=== PATIENT | male | born 1960 | race African-American/Black ===

== ENCOUNTER 2017-03-23 02:00 | Inpatient (IN) | payer OTHER ==
[~2017-03-23] VITALS: Ht 167.6 cm; Wt 86.2 kg
--- NOTE | ~2017-03-23 | PN ---
Unit #: [id number] #: [id number] Patient: HARMEET BROOKS [id number] [facility] [address] [place] [address] [id number] I MR#: [id number] NAME: HARMEET BROOKS. ROOM: P110 Age: 56 Sex: M Admission Date: 03/23/2017 : 1960 Attending Physician: Chi Workman M.D. Admitting Physician: Chi Workman M.D. Primary Care Physician: Ravinder Roldan PROGRESS NOTES DATE 03/28/2017 DISCUSSION Mr. Brooks continues to have some depressed mood with a downcast affect. He is alert and fully oriented today. Memory and concentration are fair. Thought processes are logical with no psychosis. He does continue to endorse suicidal thinking. ASSESSMENT Major depression. PLAN Continue current treatment plan and work toward discharge later in the week. Dictated by... Ravinder Catherine/aggie TD: 03/28/2017 23:03 JOB #: [id number] [facility] PROGRESS NOTES Page 1 of 1 X Chi Workman MD X PROGRESS NOTE
--- NOTE | ~2017-03-23 | PN ---
Unit #: [id number] #: [id number] Patient: HARMEET BROOKS [id number] [facility] [address] [place] [address] [id number] I MR#: [id number] NAME: HARMEET BROOKS. ROOM: P110 Age: 56 Sex: M Admission Date: 03/23/2017 : 1960 Attending Physician: Chi Workman M.D. Admitting Physician: Chi Workman M.D. Primary Care Physician: Ravinder Roldan PROGRESS NOTES DATE 03/27/2017 DISCUSSION Harmeet continues to participate appropriately in groups and activities. His mood is depressed with a decreased range of affect although a little brighter than yesterday. He is alert and fully oriented with no psychosis. He continues to ruminate on suicidality. He is also concerned about his outpatient placement. ASSESSMENT Major depression. PLAN Continue current treatment plan and I encouraged the patient to work with his director of social media marketing on clarifying placement issues. Dictated by... Chi Workman M.D. /camila TD: 03/28/2017 15:11 JOB #: [id number] [facility] PROGRESS NOTES Page 1 of 1 X Chi Workman MD X PROGRESS NOTE
--- NOTE | ~2017-03-23 | DS ---
Unit #: [id number] #: [id number] Patient: HARMEET BROOKS [id number] [facility] [address] [place] [address] [id number] I MR#: [id number] NAME: HARMEET BROOKS. ROOM: [facility] Age: 56 Sex: M Admission Date: 03/23/2017 : 1960 Discharge Date: 04/02/2017 Attending Physician: Chi Workman M.D. Primary Care Physician: Sumi Velazquez M.D. DISCHARGE SUMMARY Covering for Dr. Chi Workman REASON FOR ADMISSION Mr. Brooks is a 56-year-old male, who was admitted related to depression and suicidal ideation. DIAGNOSTIC STUDIES Laboratory data, please see hospital chart. HOSPITAL COURSE Mr. Brooks was admitted and placed on suicidal precautions, and previous medications. Mr. Brooks was generally quiet, compliant during this hospitalization and upon the day of discharge denied any homicidal, suicidal ideations, and verbalized no plan or intent. He contracted for safety. His biggest concern, during this hospitalization, was postdischarge disposition. Mr. Brooks eagerly pushed for placement in a thirty day substance abuse residential center. At this time, he is joelle for safety and after interview with staff he was able to discharge at his request. DISCHARGE DIAGNOSES Egan I Major depressive disorder, recurrent, severe without psychotic symptoms. Egan II Deferred. Egan III None acute. Egan IV Egan V FOLLOWUP CARE Follow up with community mental health and substance abuse treatment resources. DISCHARGE MEDICATIONS 1. Zoloft 50 mg daily 2. Trazodone 50 mg q.h.s. CONDITION AT DISCHARGE Fair. PROGNOSIS Fair. Unit #: [id number] #: [id number] Patient: HARMEET BROOKS DIET AND ACTIVITY Ad luis. Dictated by... Lavinia Simmons APRN for Ravinder Catherine/kb TD: 04/06/2017 06:31 JOB #: [id number] DISCHARGE SUMMARY Page 1 of 1 X LAVINIA SIMMONS DISCHARGE SUMMARY
--- NOTE | ~2017-03-23 | PN ---
Unit #: [id number] #: [id number] Patient: HARMEET BROOKS [id number] [facility] [address] [place] [address] [id number] MR#: [id number] NAME: HARMEET BROOKS. ROOM: P110 Age: 56 Sex: M Admission Date: 03/23/2017 : 1960 Attending Physician: Chi Workman M.D. Admitting Physician: Chi Workman M.D. Primary Care Physician: Ravinder Roldan PROGRESS NOTES DATE 03/26/2017 DISCUSSION Mr. Brooks says that he is beginning to feel better. He is compliant with medications and has no adverse side effects. He is alert and fully oriented with a brighter affect and no active psychosis. He does continue to ruminate on suicidal ideation and outside concerns. ASSESSMENT Major depression. PLAN Continue current treatment plan. Dictated by... Ravinder Catherine/camila TD: 03/28/2017 17:01 JOB #: [id number] [facility] PROGRESS NOTES Page 1 of 1 X Chi Workman MD X PROGRESS NOTE
--- NOTE | ~2017-03-23 | PN ---
Unit #: [id number] #: [id number] Patient: HARMEET BROOKS [id number] [facility] [address] [place] [address] [id number] I MR#: [id number] NAME: HARMEET BROOKS. ROOM: [facility] Age: 56 Sex: M Admission Date: 03/23/2017 : 1960 Attending Physician: Chi Workman M.D. Admitting Physician: Chi Workman M.D. Primary Care Physician: Ravinder Roldan PROGRESS NOTES DATE 03/31/2017 DISCUSSION This patient was seen and assessed on March 31, 2017. Upon discussion upon today's assessment the patient was found ambulating in the hallway. He smiled and stated that he was thankful that he finally had a plan in action as far as his disposition post discharge. At this time, he says that he will be following up with [facility] as well as with a the [facility] until the time he attends his pending court date and will then be accepted to the 28 day substance abuse facility that [place]. At this time, he denies suicidal ideations and homicidal ideation and verbalized no plan or intent. He denies auditory or visual hallucinations and no overt symptoms of psychosis was noted. We will continue to monitor the patient q 15 minutes for safety. Dictated by... KEI Ray/aggie TD: 04/03/2017 04:48 JOB #: [id number] [facility] PROGRESS NOTES Page 1 of 1 X ANDRES SIMMONS PROGRESS NOTE
--- NOTE | ~2017-03-23 | PN ---
Unit #: [id number] #: [id number] Patient: HARMEET BROOKS [id number] [facility] [address] [place] [address] [id number] MR#: [id number] NAME: HARMEET BROOKS. ROOM: [facility] Age: 56 Sex: M Admission Date: 03/23/2017 : 1960 Attending Physician: Chi Workman M.D. Admitting Physician: Chi Workman M.D. Primary Care Physician: Ravinder Roldan PROGRESS NOTES DATE 04/01/2017 DISCUSSION Upon today's assessment, this patient was found in the dayroom appearing in no apparent distress. He smiled at this provider and stated that he was happy and satisfied with his post discharge placement and that he was looking forward to discharge tomorrow. He currently reports no SI/HI and verbalizes no plan or intent. He denies auditory or visual hallucinations and no overt symptoms of psychosis was noted. He reports adequate appetite and adequate sleep. PLAN Dc tomorrow and follow up with [facility]. Dictated by... KEI Ray/camila TD: 04/03/2017 21:05 JOB #: [id number] [facility] PROGRESS NOTES Page 1 of 1 X ANDRES SIMMONS PROGRESS NOTE
--- NOTE | ~2017-03-23 | PN ---
Unit #: [id number] #: [id number] Patient: HARMEET BROOKS [id number] [facility] [address] [place] [address] [id number] I MR#: [id number] NAME: HARMEET BROOKS. ROOM: P261 Age: 56 Sex: M Admission Date: 03/23/2017 : 1960 Attending Physician: Chi Workman M.D. Admitting Physician: Chi Workman M.D. Primary Care Physician: Ravinder Roldan PROGRESS NOTES DATE 03/29/2017 DISCUSSION This patient was seen and assessed on 03/29/2017. Upon today's assessment Mr. Brooks reports that he is concerned regarding his discharge and is worried that he may be homeless post discharge. He reports that his plan is to followup with a residential center in [place] and/or [place]. Upon today's assessment he denies suicidal or homicidal ideations and verbalized no plan or intent. He also denies auditory or visual hallucinations and no overt symptoms of psychosis was noted. He reports that he is sleeping well and that his appetite is adequate. PLAN Continue to work with Mr. Brooks's therapist/clinical social worker to facilitate placement post discharge. Dictated by... KEI Ray/aggie TD: 04/02/2017 05:16 JOB #: [id number] [facility] PROGRESS NOTES Page 1 of 1 X ANDRES SIMMONS PROGRESS NOTE
--- NOTE | ~2017-03-23 | PN ---
Unit #: [id number] #: [id number] Patient: HARMEET BROOKS [id number] [facility] [address] [place] [address] [id number] I MR#: [id number] NAME: HARMEET BROOKS. ROOM: [facility] Age: 56 Sex: M Admission Date: 03/23/2017 : 1960 Attending Physician: Chi Workman M.D. Admitting Physician: Chi Workman M.D. Primary Care Physician: Ravinder Roldan PROGRESS NOTES DATE 03/24/2017 DISCUSSION Mr. Brooks is isolative in his room today and is depressed with a downcast affect. He is alert and fully oriented. His memory and concentration are intact. His thought processes are logical with no active psychosis. ASSESSMENT 1. Major depression. 2. Cocaine abuse. PLAN Continue current treatment plan. Dictated by... Chi Workman M.D. [facility]/camila TD: 03/28/2017 22:22 JOB #: [id number] [facility] PROGRESS NOTES Page 1 of 1 X Chi Workman MD X PROGRESS NOTE
--- NOTE | ~2017-03-23 | HP ---
Unit #: [id number] #: [id number] Patient: HARMEET BROOKS [id number] [facility] [address] [place] [address] [id number] I MR#: [id number] NAME: HARMEET BROOKS. ROOM: P110 Age: 56 Sex: M Admission Date: 03/23/2017 : 1960 Attending Physician: Chi Workman M.D. Admitting Physician: Chi Workman M.D. Primary Care Physician: Sumi Velazquez M.D. HISTORY AND PHYSICAL HISTORY OF PRESENT ILLNESS Harmeet is a 56 year old admitted to [address] [place] [address] because of his continued abuse of alcohol. He has had other admissions to this facility. PAST MEDICAL HISTORY 1. Long history of alcohol abuse. 2. COPD. 3. Hyperlipidemia. 4. High blood pressure. 5. Diabetes mellitus. PAST SURGICAL HISTORY Nothing reported. ALLERGIES No known drug allergies. SOCIAL HISTORY He smokes one pack per day. Drinks alcohol frequently. He has a history of illicit substance abuse but denies anything currently. FAMILY HISTORY Medically noncontributory. REVIEW OF SYSTEMS CONSTITUTIONAL: No fever or chills. HEENT: Denies any sore throat, ear pain or runny nose. CARDIOVASCULAR: Denies chest pain, irregular heart rhythm or palpitations. CHEST: Denies shortness of breath or cough. No hemoptysis. GASTROINTESTINAL: Denies nausea, vomiting, diarrhea or chronic constipation. ENDOCRINE: Denies history of increased thirst or urination. No recent significant weight loss or gain. GENITOURINARY: Denies dysuria, frequency, or hematuria. SKIN: Denies any rashes. HEMATOLOGIC: Denies history of increased bleeding or bruising. MUSCULOSKELETAL: Denies any hot, swollen joints. No generalized muscle pain. NEUROLOGIC: Denies problems with vision or speech. No frequent, severe headaches. No numbness, tingling or weakness in any extremities. Denies loss of bladder or bowel control. Unit #: [id number] #: [id number] Patient: HARMEET BROOKS CURRENT MEDICATIONS 1. Detox protocol 2. Protonix 40 mg q day 3. Zoloft 50 mg q day 4. Symbicort 2 puffs b.i.d. 5. Bisacodyl enteric coated 5 mg q day 6. Zestril 10 mg q day 7. Zyloprim 300 mg q day 8. HCTZ 12.5 mg q day 9. Cozaar 100 mg q day 10. Lipitor 40 mg q day 11. Desyrel 50 mg q h.s. 12. Pletal 100 mg b.i.d. 13. Coreg 3.125 mg b.i.d. 14. Nicotine patch 14 mg q day PHYSICAL EXAMINATION GENERAL: Alert, obese, in no apparent distress. VITAL SIGNS: Blood pressure 126/80, heart rate 80, respirations 16, temperature 98.6. WEIGHT: 190. HEIGHT: 5 foot 6 inches. SKIN: Warm and dry without rash or lesion. HEENT: Normocephalic. TMs not viewed. Oral and nasal passages clear. Conjunctivae clear. Pupils equal, round and reactive to light and accommodation. Extraocular movements intact. NECK: Supple without lymphadenopathy or thyromegaly. HEART: Regular rate and rhythm without murmur. LUNGS: Clear. ABDOMEN: Soft, nontender. : Not done. EXTREMITIES: No evidence of cyanosis, clubbing or edema. Moves all extremities without focal deficit. NEUROLOGICAL: Grossly within normal limits. Cranial Nerves: II: Visual yin are intact. III, IV AND : Extraocular movements are intact. Pupils are equal, round and reactive to light. V: Facial sensation is grossly normal. VII: Facial movements and expression are normal. VIII: Auditory acuity grossly intact. IX, X: Uvula is midline. Phonation is normal. XI: Patient shrugs shoulders and turns head normally. XII: Tongue protrudes in the midline. Sensory and Motor Function: Sensory and motor sensation is grossly normal. Motor: moves all extremities well. Coordination: Gait is normal. Deep Tendon Reflexes: Intact. IMPRESSION Psychiatric admission. RECOMMENDATIONS PSYCHIATRIC: Per psychiatrist. MEDICAL: I see no contraindications to participating in facility's activities. MEDICAL PROGNOSIS Good. MEDICAL CONDITION Unit #: [id number] #: [id number] Patient: HARMEET BROOKS Chiquita. Dictated by... Carmen Hilton P.A.-C. for Ravinder Liu/aggie TD: 03/23/2017 22:09 JOB #: [id number] HISTORY AND PHYSICAL Page 1 of 1 X Carmen Hilton HISTORY AND PHYSICAL
--- NOTE | ~2017-03-23 | PA ---
Unit #: [id number] #: [id number] Patient: HARMEET BROOKS [id number] [facility] [address] [place] [address] [id number] MR#: [id number] NAME: HARMEET BROOKS. ROOM: [facility] Age: 56 Sex: M Admission Date: 03/23/2017 : 1960 Date of Assessment: 03/23/2017 Attending Physician: Chi Workman M.D. Admitting Physician: Chi Workman M.D. Primary Care Physician: Sumi Velazquez M.D. PSYCHIATRIC ASSESSMENT DATE OF SERVICE 03/23/2017. INFORMANTS The patient reliable; [facility], reliable; [employer] [place], reliable. CHIEF COMPLAINT Suicidal ideation. HISTORY OF PRESENT ILLNESS Mr. Brooks is a 56-year-old man who reports he is "drinking and doing drugs," and is tired of being depressed. He had suicidal ideation and could not contract for safety. He was admitted for stabilization. PAST PSYCHIATRIC HISTORY Previous admission to this facility, the last in 08/2016. He has also been getting treatment through [facility]. He has been noncompliant with medications. FAMILY PSYCHIATRIC HISTORY None reported. SOCIAL HISTORY The patient is homeless and has some previous legal charges. He has minimal income and is estranged from his family. He stays in local shelters and is on long-term disability. PAST MEDICAL HISTORY Hypertension, COPD, diabetes, high cholesterol, and gout. MEDICATIONS Please see MAR. ALLERGIES Tomato. SUBSTANCE ABUSE HISTORY The patient drinks alcohol and occasionally uses cocaine. MENTAL STATUS EXAMINATION The patient presented as a mildly disheveled man who was appeared older than his stated age. His mood was depressed with a congruent affect. He was alert and fully oriented with no active psychosis and ongoing suicidal Unit #: [id number] #: [id number] Patient: HARMEET BROOKS ideation. ASSETS AND LIABILITIES Assets; the patient is healthy, knows local resources. He is homeless without current employment. ADMITTING DIAGNOSES AXIS I: Major depression; alcohol abuse; cocaine abuse. AXIS II: No diagnosis. AXIS III: Chronic obstructive pulmonary disease, hypertension, diabetes, hyperlipidemia, gastroesophageal reflux disease, and gout. AXIS IV: AXIS V: PSYCHIATRIC PLAN The patient was admitted and placed on suicide precautions. His psychiatric medications and home medications will be determined and restarted. He will enroll in psychotherapy groups and activities, and physical examination and laboratory studies will be ordered and reviewed. Citalopram will be replaced with Zoloft 50 mg daily due to lack of effectiveness of his previous medication. TREATMENT GOALS Resolution of SI, improvement in insight, and improvement in coping skills. DISCHARGE PLANNING Follow up with [facility]. ESTIMATED LENGTH OF STAY 5 days. Dictated by... Chi Workman M.D. JOJO/adilene TD: 03/26/2017 13:28 JOB #: [id number] PSYCHIATRIC ASSESSMENT Page 1 of 1 X Chi Workman MD X PSYCHIATRIC ASSESSMENT
--- NOTE | ~2017-03-23 | PN ---
Unit #: [id number] #: [id number] Patient: HARMEET BROOKS [id number] [facility] [address] [place] [address] [id number] MR#: [id number] NAME: HARMEET BROOKS. ROOM: P261 Age: 56 Sex: M Admission Date: 03/23/2017 : 1960 Attending Physician: Chi Workman M.D. Admitting Physician: Chi Workman M.D. Primary Care Physician: Ravinder Roldan PROGRESS NOTES DATE 03/30/2017 DISCUSSION Upon today's assessment Mr. Brooks was found ambulating the hallway. He voiced that he was very concerned regarding his disposition post discharge and stated that he could not end up on the street and that he knew that if he was discharged before being placed in a residential facility for substance abuse he stated he knew he would go right back to using drugs. He also reported that if released today that he would like to find the individuals that are responsible for him ending up in this situation and harm them. He did not discuss any plans regarding this but stated he would like to retaliate towards them. He will continue to work with his pediatric social worker, Levi to help facilitate his disposition post discharge. Patient is looking for placement in the [place] or [place] area but it is open to other substance abuse residential centers locally as well. PLAN We will continue to monitor the patient q 15 minutes for safety and I will continue to work with Levi regarding his discharge. Dictated by... KEI Ray/aggie TD: 04/03/2017 04:27 JOB #: [id number] [facility] PROGRESS NOTES Page 1 of 1 X ANDRES SIMMONS PROGRESS NOTE
[~2017-03-23 02:00] MED LIST: KROGER PHARMACY; [UNRECOGNIZED DRUG - REMARK]
== END 2017-04-02 11:15 | DRG 881 ==
LOC: P1S 06:19 → P2L 03-31 13:48
PROC: HZ2ZZZZ Detoxification Services for Substance Abuse Treatment (ICD-10-PCS; principal; 2017-03-23)
DX: F32.9 Major depressive disorder, single episode, unspecified (principal); E11.9 Type 2 diabetes mellitus without complications; I10 Essential (primary) hypertension; F10.10 Alcohol abuse, uncomplicated; F14.10 Cocaine abuse, uncomplicated; J44.9 Chronic obstructive pulmonary disease, unspecified; E78.5 Hyperlipidemia, unspecified; K21.9 Gastro-esophageal reflux disease without esophagitis; M10.9 Gout, unspecified